=== PATIENT | male | born 1960 | race Caucasian/White ===

== ENCOUNTER 2017-02-02 16:38 | Emergency (ER) | payer MEDICAID, OTHER ==
[~2017-02-02] VITALS: Ht 170.2 cm; Wt 77.5 kg
[~2017-02-02 16:38] MED LIST: AMOX1TAB64 PO; CARV3.122 PO; FURO-92 PO; GUAI5SYR PO; LISI-167 PO; NICO1PAT4 TD; POTA20TA89 PO
[2017-02-02] MEDS ORDERED: SODIUM CHLORIDE FLUSH 10ML SYR IVF ONE (17:00)
[2017-02-02] MEDS ORDERED: ASPIRIN 81 MG TABLET CHEW PO ONE (17:00)
[2017-02-02] MEDS ORDERED: ASPIRIN 81 MG TABLET CHEW ONE (17:07)
[2017-02-02 17:27] VITALS: BP 104/74
[2017-02-02 17:36] LABS: ASPARTATE AMINO TRANSFERASE 19 U/L (15-37); BLOOD UREA NITROGEN 22 mg/dL (7-18)
[2017-02-02 17:41] LABS: IS PT STATUS REG ER OR PRE ER? YES
== END 2017-02-02 20:03 | disposition home or self-care (01) ==
LOC: ED 19:26
DX: S66.012A Strain of long flexor muscle, fascia and tendon of left thumb at wrist and hand level, initial encounter (principal); I11.0 Hypertensive heart disease with heart failure; I50.9 Heart failure, unspecified; X58.XXXA Exposure to other specified factors, initial encounter; Y93.89 Activity, other specified; Y92.89 Other specified places as the place of occurrence of the external cause; Y99.9 Unspecified external cause status
CPT/HCPCS: 36415; 71010; 80053; 83880; 84484; 85025; 93005; 99285